=== PATIENT | male | born 1965 | race Two or more races ===

== ENCOUNTER 2020-03-14 16:40 | Emergency (ER) | payer OTHER ==
[~2020-03-14] VITALS: Ht 177.8 cm; Wt 95.3 kg
[2020-03-14 16:45] VITALS: BP 132/76
[2020-03-14] MEDS ORDERED: Naloxone 1mg/ml 2ml IVP ONE (16:45)
--- NOTE | 2020-03-14 16:45 | NUR ---
ED Nurse Note: Patient picked up from street and brought in by [facility] for overdose of heroin in unknown amount. Per EMS, patient was found beside his wheelchair and lying face down. Noted left eyebrow laceration with mild bleeding. Patient is awake but moaning and withdrawing when applied painful stimulation. No respiratory distress.
--- NOTE | 2020-03-14 16:50 | Emergency Room Report ---
History of Present Illness General Chief Complaint: Overdose Source: Patient Present Illness HPI Disclaimer: Please note that this report is being documented using DRAGON technology. This can lead to erroneous entry secondary to incorrect interpretation by the dictating instrument. HPI: 54-year-old male brought in by EMS for altered mental status. 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 Patient brought in from the street after he was witnessed to follow-up at his wheelchair. Numerous abscesses noted on arm. Intranasal Narcan given without effect. Arouses to painful stimuli only. Protecting airway, normal respirations at this time. Cannot obtain any inform ation from patient. PMH: Substance abuse PSH: Unable to obtain Allergies: Unable to obtain Social Hx: History of IV drug abuse Allergies: Coded Allergies: UNABLE TO ASSESS (Unverified , 03/14/20) COVID-19 Screening Contact w/high risk pt: No Experienced COVID-19 symptoms?: No COVID-19 Testing performed CIAIO LUMITE INJECTOR: No Nursing Documentation-PMH Past Medical History Deferred: Pt Cognitively Impaired Past Medical History: Deferred Hx Cancer: No Review of Systems All Other Systems: limited - Unable to obtain from patient due to clinical condition. Physical Exam General: Somnolent, arouses to pain only. HEENT: NC/AT. 1 cm laceration over the orbital rim left side. Hemostatic. Appears to have ripped an old scab. Pupils are 3 mm and reactive to light bilaterally. Cardiovascular: RRR. S1 and S2 normal. No murmur appreciated Resp: Normal work of breathing. No cough, wheezing or crackles appreciated Abdomen: Abdomen is soft, nondistended. Nontender Skin: Multiple areas of indurated and erythematous skin over the upper ex tremities as well as the lower extremities. There is an open draining abscess over the lateral portion of the left tricep. Warmth over the left deltoid with underlying induration but no fluctuance. MSK: Normal tone and bulk. Moving all extremities. No obvious deformity. Neuro: Somnolent, arousable to pain. GCS 8 Procedures Critical Care Time Critical Care Time Total critical care time: Approximately 45 minutes Due to a high probability of clinically significant, life threatening deterioration, the patient required the highest level of preparedness to intervene emergently and I personally spent this critical care time directly and personally managing the patient. This critical care time included obtaining a hi story, examining the patient, pulse oximetry, ordering and reviewing studies, ordering treatments, evaluating response to treatment and updating management plan as needed, frequent reassessment and discussion with other providers as well as arranging for ultimate disposition. This critical to care time was performed to assess and manage the high probability of life-threatening det erioration that could result in multiorgan failure. This critical care time is separate from the separately billable procedures and treating other patients. Medical Decision Making Diagnostic Impression: Primary Impression: Alcohol intoxication Additional Impressions: Purulent abscess IV drug abuse Altered mental status ER Course 54-year-old male brought in for evaluation of altered mental status. Concern for any cranial injury, substance overdose, cellulitis, abscess, electrolyte abnormalities, dehydration, intoxication, sepsis among others. CT scan obtained does not show acute intracranial injury. Labs show significantly elevated alcohol level greater than 600 as well as positive for opiates. Lactate elevated and the patient is receiving IV fluids. The patient was treated again with Narcan without significant effect. He saturating 99% on room air no respiratory distress and no respiratory depression. Tetanus was updated. Patient given broad-spectrum antibiotics for purulent cellulitis. Laceration over the left orbital rim does not require closure. Patient's insurance has not capitated to [facility]. Dr. Awad is the accepting physician. Will arrange transfer. Laboratory Tests Test 03/14/20 16:35 03/14/20 16:55 White Blood Count 7.2 K/UL (4.8-10.8) Red Blood Count 3.53 M/UL (4.70-6.10) L Hemoglobin 11.2 G/DL (14.2-18.0) L Hematocrit 33.6 % (42.0-52.0) L Mean Corpuscular Volume 95 FL (80-99) Mean Corpuscular Hemoglobin 31.8 PG (27.0-31.0) H Mean Corpuscular Hemoglobin Concent 33.4 G/DL (32.0-36.0) Red Cell Distribution Width 16.1 % (11.6-14.8) H Platelet Count 195 K/UL (150-450) Mean Platelet Volume 5.5 FL (6.5-10.1) L Neutrophils (%) (Auto) 73.0 % (45.0-75.0) Lymphocytes (%) (Auto) 15.3 % (20.0-45.0) L Monocytes (%) (Auto) 9.9 % (1.0-10.0) Eosinophils (%) (Auto) 0.2 % (0.0-3.0) Basophils (%) (Auto) 1.6 % (0.0-2.0) Sodium Level 141 MMOL/L (136-145) Potassium Level 3.4 MMOL/L (3.5-5.1) L Chloride Level 103 MMOL/L (98-107) Carbon Dioxide Level 27 MMOL/L (21-32) Anion Gap 11 mmol/L (5-15) Blood Urea Nitrogen 6 mg/dL (7-18) L Creatinine 0.6 MG/DL (0.55-1.30) Estimated Glomerular Filtration Rate > 60 mL/min (>60) Glucose Level 117 MG/DL (74-106) H Lactic Acid Level 2.50 mmol/L (0.4-2.0) H Calcium Level 7.4 MG/DL (8.5-10.1) L Total Bilirubin 0.5 MG/DL (0.2-1.0) Aspartate Amino Transferase (AST) 84 U/L (15-37) H Alanine Aminotransferase (ALT) 35 U/L (12-78) Alkaline Phosphatase 151 U/L (46-116) H Total Protein 7.3 G/DL (6.4-8.2) Albumin 2.0 G/DL (3.4-5.0) L Globulin 5.3 g/dL Albumin/Globulin Ratio 0.4 (1.0-2.7) L Salicylates Level 0.6 ug/mL (2.8-20) L Acetaminophen Level < 2 MCG/ML (10-30) L Serum Alcohol 617 mg/dL Urine Color Pale yellow Urine Appearance Clear Urine pH 7 (4.5-8.0) Urine Specific [place] 1.005 (1.005-1.035) Urine Protein Negative (NEGATIVE) Urine Glucose (UA) Negative (NEGATIVE) Urine Ketones Negative (NEGATIVE) Urine Blood Negative (NEGATIVE) Urine Nitrite Negative (NEGATIVE) Urine Bilirubin Negative (NEGATIVE) Urine Urobilinogen Normal MG/DL (0.0-1.0) Urine Leukocyte Esterase Negative (NEGATIVE) Urine Opiates Screen Positive (NEGATIVE) H Urine Barbiturates Screen Negative (NEGATIVE) Phencyclidine (PCP) Screen Negative (NEGATIVE) Urine Amphetamines Screen Negative (NEGATIVE) Urine Benzodiazepines Screen Negative (NEGATIVE) Urine Cocaine Screen Negative (NEGATIVE) Urine Marijuana (THC) Screen Negative (NEGATIVE) Chest X-Ray Diagnostic Results Chest X-Ray Diagnostic Results : Chest X-Ray Ordered: Yes # of Views/Limited/Complete: 1 View Indication: Shortness of Breath EP Interpretation: Yes Interpretation: no consolidation, no effusion, no pneumothorax Impression: No acute disease Electronically Signed by: Electronically signed by Dr. Jason Gutierrez MD CT/MRI/US Diagnostic Results CT/MRI/US Diagnostic Results : Impression Final Report EXAM: CT Head Without Intravenous Contrast CLINICAL HISTORY: AMS TECHNIQUE: Axial computed tomography images of the head/brain without intravenous contrast. CTDI is 53.4 mGy and DLP is 1125.7 mGy-cm. One or more of the following dose reduction techniques were used: automated exposure control, adjustment of the mA and/or kV according to patient size, use of iterative reconstruction technique. COMPARISON: No relevant prior studies available. FINDINGS: Brain: No intracranial hemorrhage, mass-effect, or edema. No acute infarct. Ventricles: Unremarkable. Bones/joints: Unremarkable. No fracture. Soft tissues: Left frontal scalp edema. Sinuses: Unremarkable as visualized. Mastoid air cells: Unremarkable as visualized. IMPRESSION: 1. No acute intracranial abnormality. 2. Left frontal scalp edema. Radiologist: Nirav Weaver MD Electronically Signed: 03/14/20 17:51 Study ready at 17:49 and initial results transmitted at 17:51 Disposition: SHORT-TERM HOSP Condition: Stable Jason Gutierrez MD Mar 14, 2020 16:50
--- NOTE | 2020-03-14 16:50 | NUR ---
ED Nurse Note: Also noted left upper arm redness and swelling.
--- NOTE | 2020-03-14 17:00 | NUR ---
ED Nurse Note: 20 g IV started in left forearm, blood and urine sent to lab
[2020-03-14 17:11] LABS: BASOPHILS % (AUTO) 1.6 % (0.0-2.0); EOSINOPHILS % (AUTO) 0.2 % (0.0-3.0); HEMATOCRIT 33.6 % (42.0-52.0); HEMOGLOBIN 11.2 G/DL (14.2-18.0); LYMPHOCYTES % (AUTO) 15.3 % (20.0-45.0); MEAN CORPUSCULAR VOLUME 95 FL (80-99); MONOCYTES % (AUTO) 9.9 % (1.0-10.0); PLATELET COUNT 195 K/UL (150-450); RED BLOOD COUNT 3.53 M/UL (4.70-6.10); RED CELL DISTRIBUTION WIDTH 16.1 % (11.6-14.8); WHITE BLOOD COUNT 7.2 K/UL (4.8-10.8)
[2020-03-14 17:12] LABS: APPEARANCE,URINE CLEAR; BILIRUBIN, URINE NEGATIVE (NEGATIVE); COLOR,URINE PALE YELLOW; GLUCOSE, URINE (UA) NEGATIVE (NEGATIVE); KETONES,URINE NEGATIVE (NEGATIVE); LEUKOCYTE ESTERASE ,URINE NEGATIVE (NEGATIVE); NITRITE,URINE NEGATIVE (NEGATIVE); PH,URINE 7 (4.5-8.0); PROTEIN,URINE NEGATIVE (NEGATIVE); UROBILINOGEN,URINE NORMAL MG/DL (0.0-1.0)
[2020-03-14 17:23] LABS: ANION GAP 11 mmol/L (5-15); BLOOD UREA NITROGEN 6 mg/dL (7-18); CALCIUM 7.4 MG/DL (8.5-10.1); CARBON DIOXIDE 27 MMOL/L (21-32); CHLORIDE 103 MMOL/L (98-107); CREATININE 0.6 MG/DL (0.55-1.30); POTASSIUM 3.4 MMOL/L (3.5-5.1); SODIUM 141 MMOL/L (136-145)
--- NOTE | 2020-03-14 17:24 | NUR ---
ED Nurse Note: patient taken to CT via gurney in stable condition.
[2020-03-14 17:29] LABS: ALANINE AMINOTRANSFERASE 35 U/L (12-78); ALBUMIN/GLOBULIN RATIO 0.4 (1.0-2.7); ALKALINE PHOSPHATASE 151 U/L (46-116); ASPARTATE AMINO TRANSFERASE 84 U/L (15-37); BILIRUBIN,TOTAL 0.5 MG/DL (0.2-1.0)
--- NOTE | 2020-03-14 17:35 | NUR ---
ED Nurse Note: patient came back from CT and stable.
[2020-03-14] MEDS ORDERED: Clindamycin 600mg 50 ML IV ONE (17:45)
[2020-03-14] MEDS ORDERED: Tetanus/Diptheria/Pertussis IM ONE (17:45)
--- NOTE | 2020-03-14 17:49 | Diagnostic Imaging Report ---
EXAM: XR Chest, 1 View CLINICAL HISTORY: SOB TECHNIQUE: Frontal view of the chest. COMPARISON: Chest x-ray 02/01/2012 FINDINGS: Lungs: Atelectasis in the lingula. No consolidation or interstitial edema. Pleural space: No pleural effusion. No pneumothorax. Heart: Unremarkable. No cardiomegaly. Bones/joints: Unremarkable. IMPRESSION: Atelectasis in the lingula. No acute abnormality.
--- NOTE | 2020-03-14 17:52 | Diagnostic Imaging Report ---
EXAM: CT Head Without Intravenous Contrast CLINICAL HISTORY: AMS TECHNIQUE: Axial computed tomography images of the head/brain without intravenous contrast. CTDI is 53.4 mGy and DLP is 1125.7 mGy-cm. One or more of the following dose reduction techniques were used: automated exposure control, adjustment of the mA and/or kV according to patient size, use of iterative reconstruction technique. COMPARISON: No relevant prior studies available. FINDINGS: Brain: No intracranial hemorrhage, mass-effect, or edema. No acute infarct. Ventricles: Unremarkable. Bones/joints: Unremarkable. No fracture. Soft tissues: Left frontal scalp edema. Sinuses: Unremarkable as visualized. Mastoid air cells: Unremarkable as visualized. IMPRESSION: 1. No acute intracranial abnormality. 2. Left frontal scalp edema.
[2020-03-14] MEDS ORDERED: Sodium Chloride 2,900 ML IVLG ONE (18:00)
--- NOTE | 2020-03-14 18:31 | NUR ---
ED Nurse Note: Repeat lactic acid sent.
[2020-03-14 18:45] VITALS: BP 143/93
[2020-03-14 19:10] VITALS: BP 140/90
--- NOTE | 2020-03-14 19:10 | NUR ---
ED Nurse Note: Report received from JON Romero. Patient is resting in bed and presents lethargic. He is unable to answer my questions at this time. Vital signs are stable. Safety measures met; will cont. to monitor.
--- NOTE | 2020-03-14 19:10 | NUR ---
HAND-OFF: Report given to Nay WEBB.
[2020-03-14 21:00] VITALS: BP 138/96
--- NOTE | 2020-03-14 21:00 | NUR ---
ED Nurse Note: Pt is sleeping at this time, VSS. No change in condition. Awaiting on ambulance transport. Will cont. to monitor. Safety measures met.
--- NOTE | 2020-03-14 21:10 | NUR ---
ED Nurse Note: Report given to JON Toussaint at [facility].
[2020-03-14 21:30] VITALS: BP 139/87
--- NOTE | 2020-03-14 21:30 | NUR ---
ED Nurse Note: Patient is stable for transfer to [facility] as ordered by ERMShivani at this time. Patient is arousable to light touch, but is still lethargic; receiving RN made aware. Vital signs are stable, no signs of respiratory distress upon ER departure. IV is intact. Pt being [facility] ALS unit 193. Packet given to EMS crew. Pt took all belongings.
== END 2020-03-14 21:30 | disposition short-term general hospital (02) ==
LOC: EDBD 16:40 → EMR 17:22
DX: F10.129 Alcohol abuse with intoxication, unspecified (principal); L02.414 Cutaneous abscess of left upper limb; F11.10 Opioid abuse, uncomplicated; S01.81XA Laceration without foreign body of other part of head, initial encounter; X58.XXXA Exposure to other specified factors, initial encounter; Y92.9 Unspecified place or not applicable; R60.0 Localized edema; J98.11 Atelectasis; Z23 Encounter for immunization
CPT/HCPCS: 36415; 70450; 71045; 80053; 80307; 81003; 83605; 85025; 87040; 90471; 90715; 96365; 96375; G0480; G0481; J2310; J7030; U0002; Z7502; 99291; S0077